=== PATIENT | male | born 1955 | race Caucasian/White ===

== ENCOUNTER 2017-06-20 09:37 | Emergency (ER) | payer OTHER ==
[~2017-06-20] VITALS: Ht 177.8 cm; Wt 100.2 kg
[2017-06-20] MEDS ORDERED: NAPROSYN500 MG PO (11:26)
[2017-06-20 11:43] VITALS: BP 150/90
== END 2017-06-20 11:43 | disposition home or self-care (01) ==
LOC: EME 09:37
DX: I82.812 Embolism and thrombosis of superficial veins of left lower extremity (principal); E03.9 Hypothyroidism, unspecified; I10 Essential (primary) hypertension; Z87.891 Personal history of nicotine dependence
CPT/HCPCS: 93971; 99281; 99283